=== PATIENT | female | born 1995 ===

== ENCOUNTER → 2020-04-14 | Outpatient (CLI) | payer SELFPAY ==
[2020-04-16 05:08] LABS: CHLAMYDIA TRACHOMATIS, NAA Negative (Negative)
== END | disposition home or self-care (01) ==
LOC: LAB SHORT 13:11 → LAB 13:11
PROVIDERS: Family Medicine
DX: Z12.4 Encounter for screening for malignant neoplasm of cervix (principal)
CPT/HCPCS: 87491; 87591; G0123

== ENCOUNTER → 2020-05-22 | Outpatient (CLI) | payer SELFPAY ==
[2020-05-24 01:08] LABS: CHLAMYDIA TRACHOMATIS, NAA Negative (Negative)
== END | disposition home or self-care (01) ==
LOC: LAB 09:30 → LAB SHORT 09:30
PROVIDERS: Family Medicine
DX: Z20.2 Contact with and (suspected) exposure to infections with a predominantly sexual mode of transmission (principal)
CPT/HCPCS: 87491; 87591

== ENCOUNTER → 2023-06-10 | Outpatient (CLI) | payer BC | LOC: LAB SHORT 07:28 → LAB 07:28 | DX: R87.619 Unspecified abnormal cytological findings in specimens from cervix uteri (principal) | CPT/HCPCS: 88305 ==

== ENCOUNTER → 2023-09-18 | Outpatient (CLI) | payer BC ==
[2023-09-18 13:07] LABS: Source, Urine Clean Catch
[2023-09-18 15:31] LABS: Bacteria Many /hpf; Mucus Light (0-Heavy); Red Blood Cells, Urine 0-2 /hpf (0-2); Squamous Epithelial Cells Many /hpf (Few); White Blood Cells, Urine 0-2 /hpf (0-5)
== END | disposition home or self-care (01) ==
LOC: LAB SHORT 09:30 → LAB 09:30
PROVIDERS: Family Medicine
DX: Z34.01 Encounter for supervision of normal first pregnancy, first trimester (principal)
CPT/HCPCS: 81015; 87086

== ENCOUNTER 2024-01-05 14:13 | Emergency (ER) | payer OTHER, BC ==
[~2024-01-05] VITALS: Ht 165.1 cm; Wt 86.2 kg
[2024-01-05 14:59] VITALS: BP 134/84
== END 2024-01-05 17:03 | disposition home or self-care (01) ==
LOC: ER 14:13
DX: O9A.212 Injury, poisoning and certain other consequences of external causes complicating pregnancy, second trimester (principal); S00.03XA Contusion of scalp, initial encounter; Z3A.23 23 weeks gestation of pregnancy; Z59.89 Other problems related to housing and economic circumstances; V89.2XXA Person injured in unspecified motor-vehicle accident, traffic, initial encounter
CPT/HCPCS: 76815; 99284-25

== ENCOUNTER → 2024-04-05 | Outpatient (CLI) | payer BC | END | disposition home or self-care (01) | LOC: LAB SHORT 11:33 | DX: O09.93 Supervision of high risk pregnancy, unspecified, third trimester (principal) | CPT/HCPCS: 87081; 87150 ==

== ENCOUNTER → 2024-06-07 | Outpatient (CLI) | payer BC ==
[~2024-06-07] MED LIST: ACET500; FAMO20 PO; ONE-A-DAY PREN1 EAC1 PO; VALTREX50013 PO
[2024-06-14 15:16] LABS: HPV HIGH RISK BY TMA Not Detected; HPV SOURCE Cervical
== END ==
LOC: LAB 16:52 → LAB SHORT 16:52
PROVIDERS: Family Medicine
DX: Z01.419 Encounter for gynecological examination (general) (routine) without abnormal findings (principal)
CPT/HCPCS: 87624; G0123